=== PATIENT | female | born 1935 | race Caucasian/White ===

== ENCOUNTER 2023-06-17 12:13 | Emergency (ER) | payer MEDICAID ==
[~2023-06-17] VITALS: Ht 152.4 cm; Wt 59.0 kg
[2023-06-17 12:54] VITALS: BP 170/78; PULSE 73; RESP 16; TEMP 97.5; O2SAT 95
[2023-06-17] MEDS: KETOROLAC 60 MG/2 ML VIAL IM ONE (14:33)
[2023-06-17] MEDS ORDERED: IBUP-2213 PO (14:40)
[2023-06-17 15:01] VITALS: BP 149/88; PULSE 77; RESP 16; TEMP 98; O2SAT 97
== END 2023-06-17 15:01 | disposition home or self-care (01) ==
LOC: MED 12:13
DX: H92.02 Otalgia, left ear (principal); J02.9 Acute pharyngitis, unspecified; M54.9 Dorsalgia, unspecified; I10 Essential (primary) hypertension; Z98.890 Other specified postprocedural states; Z88.0 Allergy status to penicillin
CPT/HCPCS: 81002; 96372; 99283; J1885

== ENCOUNTER 2023-07-14 22:59 | Inpatient (IN) | payer MEDICAID ==
[~2023-07-14] VITALS: Ht 147.3 cm; Wt 66.7 kg
[~2023-07-14 22:59] MED LIST: IBUP-2213 PO
[2023-07-14 23:07] VITALS: BP 169/87; PULSE 74; RESP 17; TEMP 97.7; O2SAT 95
[2023-07-15] VITALS (7 sets, daily range): BP systolic 142–169; BP diastolic 60–82; PULSE 72–107; RESP 18–24; TEMP 97–98.3; O2SAT 93–97
[2023-07-15 00:13] LABS: BASOPHILS # (AUTO) 0.1 K/uL (0.00-0.22); BASOPHILS % (AUTO) 0.9 % (0.0-2.0); EOSINOPHILS # (AUTO) 0.2 K/uL (0-0.4); EOSINOPHILS % (AUTO) 3.3 % (0.0-4.0); HEMATOCRIT 38.3 % (36-48); HEMOGLOBIN 13.1 g/dL (12.0-16.0); LYMPHOCYTES # (AUTO) 1.5 K/uL (2.5-16.5); LYMPHOCYTES % (AUTO) 22.6 % (20.5-51.1); MEAN CORPUSCULAR HEMOGLOBIN 31 pg (27-31); MEAN CORPUSCULAR HGB CONC 34 g/dL (33-37); MEAN CORPUSCULAR VOLUME 91.9 fL (80-94); MONOCYTES # (AUTO) 0.8 K/uL (0.8-1.0); MONOCYTES % (AUTO) 11.2 % (1.7-9.3); NEUTROPHILS # (AUTO) 4.2 K/uL (1.8-7.7); PLATELET COUNT (AUTO) 201 K/uL (140-450); RED BLOOD CELL COUNT(AUTO) 4.17 MIL/uL (4.20-5.40); RED CELL DISTRIBUTION WIDTH 12.4 % (11.6-13.7); WHITE BLOOD COUNT (AUTO) 6.8 K/uL (4.8-10.8)
[2023-07-15 00:30] LABS: ANION GAP 13.7 (8-16); CALCIUM 8.9 mg/dL (8.5-10.1); CARBON DIOXIDE 26.1 mmol/L (21-32); CHLORIDE 103 mmol/L (98-107); GLUCOSE 117 mg/dL (74-106); POTASSIUM 3.8 mmol/L (3.5-5.1); SODIUM SERUM 139 mmol/L (136-145); UREA NITROGEN, BLOOD 19 mg/dL (7-18)
[2023-07-15 00:38] LABS: INR 0.99 (0.8-1.2); PARTIAL THROMBOPLASTIN TIME 26.5 secs (22-35.6); PROTHROMBIN TIME 10.4 secs (10.8-13.4)
[2023-07-15 00:40] LABS: LACTIC ACID 0.7 mmol/L (0.4-2.0)
[2023-07-15 01:03] LABS: BILIRUBIN,URINE NEGATIVE (NEGATIVE); BLOOD, URINE 1+ (NEGATIVE); COLOR,URINE YELLOW (YELLOW); LEUKOCYTE ESTERASE ,URINE 1+ (NEGATIVE); NITRITE, URINE NEGATIVE (NEGATIVE); PROTEIN,URINE NEGATIVE (NEGATIVE); UGLUCOSE NEGATIVE (NEGATIVE)
[2023-07-15 01:04] LABS: APPEARANCE,URINE SLIGHTLY HAZY (CLEAR)
[2023-07-15 01:05] LABS: RBC,URINE 0-5 /HPF (0-5); WBC,URINE 0-5 /HPF (0-5)
[2023-07-15 01:06] LABS: BACTERIA,URINE 1+ /HPF (None Seen); MUCUS,URINE None Seen /LPF (None Seen); SQUAMOUS EPITHELIAL CELL,UR 0-3 (FEW) /LPF (0-3 (FEW))
[2023-07-15] MEDS: LEVOFLOXACIN 750 MG/D5W PREMIX 150 ML IV ONE (01:29)
[2023-07-15 01:33] LABS: FLU A ANTIGEN negative (NEGATIVE); FLU B ANTIGEN negative (NEGATIVE)
[2023-07-15] MEDS ORDERED: diphenhydrAMINE 12.5 MG/5 ML UDC ONE (01:59)
[2023-07-15] MEDS ORDERED: diphenhydrAMINE 50 MG/ML VIAL ONE (02:01)
[2023-07-15] MEDS: diphenhydrAMINE 50 MG/ML VIAL IVP ONE (02:22)
[2023-07-15 07:10] LABS: BASOPHILS # (AUTO) 0.1 K/uL (0.00-0.22); BASOPHILS % (AUTO) 0.9 % (0.0-2.0); EOSINOPHILS # (AUTO) 0.2 K/uL (0-0.4); EOSINOPHILS % (AUTO) 2.8 % (0.0-4.0); HEMATOCRIT 37.9 % (36-48); HEMOGLOBIN 12.7 g/dL (12.0-16.0); LYMPHOCYTES # (AUTO) 1.4 K/uL (2.5-16.5); LYMPHOCYTES % (AUTO) 22.9 % (20.5-51.1); MEAN CORPUSCULAR HEMOGLOBIN 31 pg (27-31); MEAN CORPUSCULAR HGB CONC 34 g/dL (33-37); MEAN CORPUSCULAR VOLUME 92.1 fL (80-94); MONOCYTES # (AUTO) 0.7 K/uL (0.8-1.0); MONOCYTES % (AUTO) 12.5 % (1.7-9.3); NEUTROPHILS # (AUTO) 3.6 K/uL (1.8-7.7); NEUTROPHILS % (AUTO) 60.9 % (42.2-75.2); PLATELET COUNT (AUTO) 196 K/uL (140-450); RED BLOOD CELL COUNT(AUTO) 4.12 MIL/uL (4.20-5.40); RED CELL DISTRIBUTION WIDTH 12.7 % (11.6-13.7); WHITE BLOOD COUNT (AUTO) 5.9 K/uL (4.8-10.8)
[2023-07-15 07:29] LABS: ANION GAP 12.1 (8-16); CALCIUM 9.2 mg/dL (8.5-10.1); CARBON DIOXIDE 28.8 mmol/L (21-32); CHLORIDE 103 mmol/L (98-107); CREATININE 1.1 mg/dL (0.6-1.3); GLUCOSE 102 mg/dL (74-106); POTASSIUM 3.9 mmol/L (3.5-5.1); SODIUM SERUM 140 mmol/L (136-145); UREA NITROGEN, BLOOD 17 mg/dL (7-18)
[2023-07-15] MEDS ORDERED: hydrALAZINE 20 MG/ML VIAL ONE (07:39)
[2023-07-15] MEDS: hydrALAZINE 20 MG/ML VIAL IVP SCH (07:48)
[2023-07-15] MEDS: hydrALAZINE 20 MG/ML VIAL IVP ONE (10:14)
[2023-07-15] MEDS ORDERED: MAG SULF 2000 MG/WATER PREMIX 50 ML IV PRN (10:20)
[2023-07-15] MEDS ORDERED: KCL 20 MEQ IN 100 mL PREMIX 200 ML IV PRN (10:20)
[2023-07-15] MEDS ORDERED: POLYETHYLENE GLYCOL 17 GM/PKT PO PRN (10:20)
[2023-07-15] MEDS ORDERED: CARV12.5 PO (11:24)
[2023-07-15] MEDS ORDERED: IRBE300T36 PO (11:24)
[2023-07-15] MEDS ORDERED: IBUP-1842 PO (11:24)
[2023-07-15] MEDS: ECOTRIN 81 MG TABEC PO SCH (11:51)
[2023-07-15] MEDS: NACL 0.9% 1,000 ML IV SCH (11:52)
[2023-07-15] MEDS ORDERED: ALBUTEROL 0.083% 2.5 MG/3 ML NEBU INH PRN (12:00)
[2023-07-15] MEDS ORDERED: IPRATROPIUM 0.02% 0.5 MG/2.5 ML NEBU INH PRN (12:00)
[2023-07-15] MEDS: ALBUTEROL SULFATE/IPRATROPIU 3 ML SOL IH ONE (12:18)
[2023-07-15 15:45] LABS: CHOL/HDL RATIO 3.1 (1-4.5)
[2023-07-15] MEDS: hydrALAZINE 20 MG/ML VIAL IVP PRN (18:36)
[2023-07-15] MEDS: carvediloL 12.5 MG TAB PO SCH (20:36)
[2023-07-16] VITALS (11 sets, daily range): BP systolic 120–197; BP diastolic 18–83; PULSE 75–97; RESP 17–21; TEMP 97.4–98.2; O2SAT 94–96
[2023-07-16 05:50] LABS: BASOPHILS % (AUTO) 0.7 % (0.0-2.0); EOSINOPHILS % (AUTO) 0.5 % (0.0-4.0); HEMATOCRIT 37.4 % (36-48); HEMOGLOBIN 12.6 g/dL (12.0-16.0); LYMPHOCYTES # (AUTO) 1.3 K/uL (2.5-16.5); LYMPHOCYTES % (AUTO) 21.3 % (20.5-51.1); MEAN CORPUSCULAR HEMOGLOBIN 31 pg (27-31); MEAN CORPUSCULAR HGB CONC 34 g/dL (33-37); MEAN CORPUSCULAR VOLUME 92.4 fL (80-94); MONOCYTES # (AUTO) 0.6 K/uL (0.8-1.0); MONOCYTES % (AUTO) 9.9 % (1.7-9.3); NEUTROPHILS # (AUTO) 4.2 K/uL (1.8-7.7); NEUTROPHILS % (AUTO) 67.6 % (42.2-75.2); PLATELET COUNT (AUTO) 201 K/uL (140-450); RED BLOOD CELL COUNT(AUTO) 4.05 MIL/uL (4.20-5.40); RED CELL DISTRIBUTION WIDTH 12.5 % (11.6-13.7); WHITE BLOOD COUNT (AUTO) 6.1 K/uL (4.8-10.8)
[2023-07-16 06:00] LABS: ALANINE AMINOTRANSFERASE 9 U/L (12-78); ALBUMIN 3.4 g/dL (3.4-5.0); ALKALINE PHOSPHATASE 72 U/L (50-136); ASPARTATE AMINOTRANSFERASE 12 U/L (15-37); CALCIUM 8.7 mg/dL (8.5-10.1); CARBON DIOXIDE 25.8 mmol/L (21-32); CHLORIDE 105 mmol/L (98-107); CREATININE 1.2 mg/dL (0.6-1.3); GLUCOSE 103 mg/dL (74-106); MAGNESIUM 2.1 mg/dL (1.8-2.4); PHOSPHORUS 4.6 mg/dL (2.5-4.9); POTASSIUM 3.8 mmol/L (3.5-5.1); SODIUM SERUM 141 mmol/L (136-145); TOTAL BILIRUBIN 0.6 mg/dL (0.0-1.0); TOTAL PROTEIN, SERUM 6.9 g/dL (6.4-8.2); UREA NITROGEN, BLOOD 19 mg/dL (7-18)
[2023-07-16] MEDS: DEXT 5% / NACL 0.45% 1,000 ML IV SCH (08:00)
[2023-07-16] MEDS: LOSARTAN 50 MG TAB PO SCH (09:00)
[2023-07-16] MEDS: MORPHINE SULFATE 2 MG/ML SYR IVP PRN ×2 (13:33→20:45)
[2023-07-16] MEDS: MELATONIN 3 MG TAB PO PRN (20:46)
[2023-07-17] VITALS (11 sets, daily range): BP systolic 112–159; BP diastolic 53–75; PULSE 69–94; RESP 16–20; TEMP 97.6–98.7; O2SAT 92–99
[2023-07-17 05:52] LABS: BASOPHILS # (AUTO) 0.1 K/uL (0.00-0.22); BASOPHILS % (AUTO) 0.9 % (0.0-2.0); EOSINOPHILS # (AUTO) 0.1 K/uL (0-0.4); EOSINOPHILS % (AUTO) 1.1 % (0.0-4.0); HEMATOCRIT 34.5 % (36-48); HEMOGLOBIN 11.8 g/dL (12.0-16.0); LYMPHOCYTES # (AUTO) 1.1 K/uL (2.5-16.5); LYMPHOCYTES % (AUTO) 18.8 % (20.5-51.1); MEAN CORPUSCULAR HEMOGLOBIN 31 pg (27-31); MEAN CORPUSCULAR HGB CONC 34 g/dL (33-37); MEAN CORPUSCULAR VOLUME 92.2 fL (80-94); MONOCYTES # (AUTO) 0.5 K/uL (0.8-1.0); MONOCYTES % (AUTO) 8.2 % (1.7-9.3); NEUTROPHILS # (AUTO) 4.2 K/uL (1.8-7.7); PLATELET COUNT (AUTO) 179 K/uL (140-450); RED BLOOD CELL COUNT(AUTO) 3.75 MIL/uL (4.20-5.40); RED CELL DISTRIBUTION WIDTH 12.5 % (11.6-13.7); WHITE BLOOD COUNT (AUTO) 5.9 K/uL (4.8-10.8)
[2023-07-17 06:20] LABS: ALANINE AMINOTRANSFERASE 13 U/L (12-78); ALBUMIN 3.3 g/dL (3.4-5.0); ALKALINE PHOSPHATASE 65 U/L (50-136); ASPARTATE AMINOTRANSFERASE 16 U/L (15-37); CALCIUM 8.5 mg/dL (8.5-10.1); CARBON DIOXIDE 26.9 mmol/L (21-32); CHLORIDE 105 mmol/L (98-107); CREATININE 1.1 mg/dL (0.6-1.3); GLUCOSE 125 mg/dL (74-106); MAGNESIUM 2.2 mg/dL (1.8-2.4); PHOSPHORUS 4.6 mg/dL (2.5-4.9); POTASSIUM 3.9 mmol/L (3.5-5.1); SODIUM SERUM 139 mmol/L (136-145); TOTAL BILIRUBIN 0.5 mg/dL (0.0-1.0); TOTAL PROTEIN, SERUM 6.7 g/dL (6.4-8.2); UREA NITROGEN, BLOOD 23 mg/dL (7-18)
[2023-07-17] MEDS: CLOPIDOGREL 75 MG TAB PO SCH (13:16)
[2023-07-17] MEDS: ATORVASTATIN 20 MG TAB PO SCH (21:24)
[2023-07-18] VITALS (9 sets, daily range): BP systolic 138–158; BP diastolic 42–67; PULSE 66–95; RESP 16–18; TEMP 97.4–98.9; O2SAT 93–98
[2023-07-18 05:42] LABS: BASOPHILS # (AUTO) 0.1 K/uL (0.00-0.22); BASOPHILS % (AUTO) 0.5 % (0.0-2.0); EOSINOPHILS # (AUTO) 0.1 K/uL (0-0.4); EOSINOPHILS % (AUTO) 0.8 % (0.0-4.0); HEMATOCRIT 35.4 % (36-48); HEMOGLOBIN 12.1 g/dL (12.0-16.0); MEAN CORPUSCULAR HEMOGLOBIN 31 pg (27-31); MEAN CORPUSCULAR HGB CONC 34 g/dL (33-37); MEAN CORPUSCULAR VOLUME 92.1 fL (80-94); MONOCYTES # (AUTO) 0.9 K/uL (0.8-1.0); MONOCYTES % (AUTO) 9.2 % (1.7-9.3); NEUTROPHILS # (AUTO) 7.4 K/uL (1.8-7.7); NEUTROPHILS % (AUTO) 78.5 % (42.2-75.2); PLATELET COUNT (AUTO) 170 K/uL (140-450); RED BLOOD CELL COUNT(AUTO) 3.85 MIL/uL (4.20-5.40); WHITE BLOOD COUNT (AUTO) 9.5 K/uL (4.8-10.8)
[2023-07-18] MEDS: HYDROcodone/APAP 5/325 MG 1 TAB TAB PO PRN (06:14)
[2023-07-18 06:49] LABS: ANION GAP 12.1 (8-16); CALCIUM 8.4 mg/dL (8.5-10.1); CARBON DIOXIDE 25.8 mmol/L (21-32); CHLORIDE 104 mmol/L (98-107); CREATININE 0.9 mg/dL (0.6-1.3); GLUCOSE 123 mg/dL (74-106); POTASSIUM 3.9 mmol/L (3.5-5.1); SODIUM SERUM 138 mmol/L (136-145); UREA NITROGEN, BLOOD 22 mg/dL (7-18)
[2023-07-18 06:50] LABS: ALANINE AMINOTRANSFERASE 22 U/L (12-78); ALBUMIN 3.2 g/dL (3.4-5.0); ALKALINE PHOSPHATASE 72 U/L (50-136); ASPARTATE AMINOTRANSFERASE 21 U/L (15-37); MAGNESIUM 2.1 mg/dL (1.8-2.4); PHOSPHORUS 3.5 mg/dL (2.5-4.9); TOTAL PROTEIN, SERUM 6.6 g/dL (6.4-8.2)
[2023-07-18 07:30] LABS: TOTAL BILIRUBIN 0.6 mg/dL (0.0-1.0)
[2023-07-19] VITALS (7 sets, daily range): BP systolic 131–149; BP diastolic 50–67; PULSE 16–76; RESP 16–19; TEMP 97.2–98.4; O2SAT 92–96
[2023-07-19 05:54] LABS: BASOPHILS % (AUTO) 0.4 % (0.0-2.0); EOSINOPHILS % (AUTO) 0.4 % (0.0-4.0); LYMPHOCYTES # (AUTO) 1.3 K/uL (2.5-16.5); LYMPHOCYTES % (AUTO) 15.8 % (20.5-51.1); MEAN CORPUSCULAR HEMOGLOBIN 31 pg (27-31); MEAN CORPUSCULAR HGB CONC 34 g/dL (33-37); MEAN CORPUSCULAR VOLUME 91.4 fL (80-94); MONOCYTES % (AUTO) 12.9 % (1.7-9.3); NEUTROPHILS # (AUTO) 5.6 K/uL (1.8-7.7); NEUTROPHILS % (AUTO) 70.5 % (42.2-75.2); PLATELET COUNT (AUTO) 142 K/uL (140-450); WHITE BLOOD COUNT (AUTO) 7.9 K/uL (4.8-10.8)
[2023-07-19 06:39] LABS: ALANINE AMINOTRANSFERASE 15 U/L (12-78); ALBUMIN 2.8 g/dL (3.4-5.0); ALKALINE PHOSPHATASE 59 U/L (50-136); ANION GAP 9.4 (8-16); ASPARTATE AMINOTRANSFERASE 14 U/L (15-37); CARBON DIOXIDE 27.4 mmol/L (21-32); CHLORIDE 103 mmol/L (98-107); GLUCOSE 120 mg/dL (74-106); PHOSPHORUS 3.6 mg/dL (2.5-4.9); POTASSIUM 3.8 mmol/L (3.5-5.1); SODIUM SERUM 136 mmol/L (136-145); TOTAL BILIRUBIN 0.8 mg/dL (0.0-1.0); TOTAL PROTEIN, SERUM 6.1 g/dL (6.4-8.2); UREA NITROGEN, BLOOD 19 mg/dL (7-18)
[2023-07-20 04:00] VITALS: BP 139/64; PULSE 67; RESP 18; TEMP 97.9; O2SAT 97
[2023-07-20 05:29] LABS: BASOPHILS % (AUTO) 0.4 % (0.0-2.0); EOSINOPHILS # (AUTO) 0.1 K/uL (0-0.4); EOSINOPHILS % (AUTO) 0.6 % (0.0-4.0); HEMATOCRIT 33.6 % (36-48); HEMOGLOBIN 11.4 g/dL (12.0-16.0); LYMPHOCYTES # (AUTO) 1.2 K/uL (2.5-16.5); LYMPHOCYTES % (AUTO) 13.2 % (20.5-51.1); MEAN CORPUSCULAR HEMOGLOBIN 31 pg (27-31); MEAN CORPUSCULAR HGB CONC 34 g/dL (33-37); MEAN CORPUSCULAR VOLUME 91.8 fL (80-94); MONOCYTES % (AUTO) 11.1 % (1.7-9.3); NEUTROPHILS # (AUTO) 6.7 K/uL (1.8-7.7); NEUTROPHILS % (AUTO) 74.7 % (42.2-75.2); PLATELET COUNT (AUTO) 149 K/uL (140-450); RED BLOOD CELL COUNT(AUTO) 3.66 MIL/uL (4.20-5.40); RED CELL DISTRIBUTION WIDTH 12.3 % (11.6-13.7); WHITE BLOOD COUNT (AUTO) 8.9 K/uL (4.8-10.8)
[2023-07-20 06:15] LABS: ALANINE AMINOTRANSFERASE 14 U/L (12-78); ALBUMIN 2.9 g/dL (3.4-5.0); ALKALINE PHOSPHATASE 71 U/L (50-136); ANION GAP 12.7 (8-16); ASPARTATE AMINOTRANSFERASE 14 U/L (15-37); CALCIUM 8.4 mg/dL (8.5-10.1); CARBON DIOXIDE 26.3 mmol/L (21-32); CHLORIDE 103 mmol/L (98-107); CREATININE 0.9 mg/dL (0.6-1.3); GLUCOSE 122 mg/dL (74-106); MAGNESIUM 2.3 mg/dL (1.8-2.4); PHOSPHORUS 3.8 mg/dL (2.5-4.9); SODIUM SERUM 138 mmol/L (136-145); TOTAL BILIRUBIN 0.7 mg/dL (0.0-1.0); TOTAL PROTEIN, SERUM 6.7 g/dL (6.4-8.2); UREA NITROGEN, BLOOD 20 mg/dL (7-18)
[2023-07-20 08:00] VITALS: BP 126/76; PULSE 73; RESP 18; TEMP 96.4; O2SAT 95
[2023-07-20] MEDS: ONDANSETRON 4 MG/2 ML VIAL IVP PRN (08:38)
[2023-07-20 19:30] VITALS: O2SAT 99
[2023-07-20 20:00] VITALS: BP 150/46; PULSE 73; RESP 18; TEMP 98.1; O2SAT 93
[2023-07-21] VITALS: BP 144/44; PULSE 68; RESP 17; TEMP 98.1; O2SAT 94
[2023-07-21] MEDS: ACETAMINOPHEN 325 MG TAB PO PRN (05:52)
[2023-07-21 07:01] LABS: BASOPHILS % (AUTO) 0.6 % (0.0-2.0); EOSINOPHILS # (AUTO) 0.1 K/uL (0-0.4); EOSINOPHILS % (AUTO) 0.8 % (0.0-4.0); HEMATOCRIT 33.3 % (36-48); HEMOGLOBIN 11.4 g/dL (12.0-16.0); LYMPHOCYTES # (AUTO) 0.9 K/uL (2.5-16.5); LYMPHOCYTES % (AUTO) 11.8 % (20.5-51.1); MEAN CORPUSCULAR HEMOGLOBIN 32 pg (27-31); MEAN CORPUSCULAR HGB CONC 34 g/dL (33-37); MEAN CORPUSCULAR VOLUME 92.1 fL (80-94); MONOCYTES # (AUTO) 0.7 K/uL (0.8-1.0); MONOCYTES % (AUTO) 9.3 % (1.7-9.3); NEUTROPHILS # (AUTO) 6.2 K/uL (1.8-7.7); NEUTROPHILS % (AUTO) 77.5 % (42.2-75.2); PLATELET COUNT (AUTO) 177 K/uL (140-450); RED BLOOD CELL COUNT(AUTO) 3.61 MIL/uL (4.20-5.40); RED CELL DISTRIBUTION WIDTH 12.4 % (11.6-13.7)
[2023-07-21 07:31] LABS: ALANINE AMINOTRANSFERASE 18 U/L (12-78); ALBUMIN 2.9 g/dL (3.4-5.0); ALKALINE PHOSPHATASE 83 U/L (50-136); ANION GAP 11.7 (8-16); ASPARTATE AMINOTRANSFERASE 19 U/L (15-37); CALCIUM 8.6 mg/dL (8.5-10.1); CARBON DIOXIDE 27.3 mmol/L (21-32); CHLORIDE 104 mmol/L (98-107); GLUCOSE 133 mg/dL (74-106); MAGNESIUM 2.2 mg/dL (1.8-2.4); PHOSPHORUS 3.7 mg/dL (2.5-4.9); SODIUM SERUM 139 mmol/L (136-145); TOTAL BILIRUBIN 0.6 mg/dL (0.0-1.0); TOTAL PROTEIN, SERUM 6.6 g/dL (6.4-8.2); UREA NITROGEN, BLOOD 18 mg/dL (7-18)
[2023-07-21 08:00] VITALS: BP 120/48; PULSE 59; RESP 18; TEMP 97.8; O2SAT 98
[2023-07-21 08:10] VITALS: PULSE 63; RESP 16; O2SAT 93
[2023-07-21] MEDS ORDERED: CARV12.5 PO (14:50)
[2023-07-21] MEDS ORDERED: CLOP75TA55 PO (14:50)
[2023-07-21] MEDS ORDERED: ASPI-1856 PO (14:50)
[2023-07-21] MEDS ORDERED: ATOR20TA40 PO (14:50)
[2023-07-21] MEDS ORDERED: IRBE300T36 PO (14:50)
[2023-07-21 16:00] VITALS: BP 151/61; PULSE 66; RESP 18; TEMP 96.7; O2SAT 96
[2023-07-21 17:24] VITALS: BP 151/61; PULSE 66; RESP 18; TEMP 96.7
[2023-07-21 19:53] VITALS: O2SAT 94
== END 2023-07-21 20:10 | disposition home or self-care (01) | DRG 45 ==
LOC: MED 22:59 → MTU 07-15 05:43
PROVIDERS: ADMIT Family Medicine; ATTEND Family Medicine
DX: I63.81 Other cerebral infarction due to occlusion or stenosis of small artery (principal); G81.94 Hemiplegia, unspecified affecting left nondominant side; I10 Essential (primary) hypertension; R07.89 Other chest pain; Z20.822 Contact with and (suspected) exposure to COVID-19; R29.810 Facial weakness; R47.81 Slurred speech; Z88.0 Allergy status to penicillin; Z79.899 Other long term (current) drug therapy; Z98.891 History of uterine scar from previous surgery
CPT/HCPCS: 36415; 70450; 71045; 71275; 80048; 80053; 81001; 82948; 83605; 83735; 83880; 84100; 84484; 85025; 85379; 85610; 85730; 86886; 86900; 86901; 87040; 87081; 87086; 92526; 93005; 93970; 94640; 96374; 96375; 97110; 97116; 97163-GP; 97530; 99285; J0360; J1200; J1644; J1956; J2270; J2405; Q0092; Q0163; Q9967

== ENCOUNTER 2023-10-03 13:17 | Emergency (ER) | payer SELFPAY ==
[~2023-10-03] VITALS: Ht 144.8 cm; Wt 45.4 kg
[~2023-10-03 13:17] MED LIST changes: +ASPI-1856 PO; +ATOR20TA40 PO; +CARV12.5 PO; +CLOP75TA55 PO; +IBUP-1842 PO; -IBUP-2213 PO; +IRBE300T36 PO
[2023-10-03 13:26] VITALS: BP 182/75; PULSE 88; RESP 16; TEMP 97.5; O2SAT 96
[2023-10-03] MEDS ORDERED: ASPI-1856 PO (14:14)
[2023-10-03] MEDS ORDERED: CLOP75TA55 PO (14:14)
[2023-10-03] MEDS ORDERED: CARV12.5 PO (14:14)
[2023-10-03] MEDS ORDERED: IRBE300T36 PO (14:14)
[2023-10-03] MEDS ORDERED: ATOR20TA40 PO (14:14)
[2023-10-03 14:30] VITALS: BP 182/75; PULSE 88; RESP 16; TEMP 97.5; O2SAT 96
== END 2023-10-03 14:30 | disposition home or self-care (01) ==
LOC: MED 13:17
DX: I10 Essential (primary) hypertension (principal); I63.9 Cerebral infarction, unspecified; Z76.0 Encounter for issue of repeat prescription; Z79.899 Other long term (current) drug therapy; Z79.82 Long term (current) use of aspirin; Z79.01 Long term (current) use of anticoagulants; Z88.0 Allergy status to penicillin
CPT/HCPCS: 99281